=== PATIENT | female | born 1950 | race Caucasian/White ===

== ENCOUNTER → 2017-03-17 | Outpatient (CLI) | payer OTHER | END | disposition home or self-care (01) | LOC: RAD 13:55 | PROVIDERS: ATTEND Nurse Practitioner | DX: K57.32 Diverticulitis of large intestine without perforation or abscess without bleeding (principal) | CPT/HCPCS: 36415; 74177; 82565 ==

== ENCOUNTER → 2017-08-25 | Outpatient (CLI) | payer OTHER | END | disposition home or self-care (01) | LOC: CFH 12:01 | PROVIDERS: ATTEND Internal Medicine | DX: M23.221 Derangement of posterior horn of medial meniscus due to old tear or injury, right knee (principal); M25.461 Effusion, right knee; M94.261 Chondromalacia, right knee ==

== ENCOUNTER → 2017-09-28 | Outpatient (CLI) | payer OTHER ==
[~2017-09-28] MED LIST: OMNIPAQUE 350 MG/ML, 100ML BOTTLE ONE
[2017-09-28 09:17] LABS: CREATININE 0.79 mg/dL (0.55-1.02)
== END | disposition home or self-care (01) ==
LOC: RAD 08:18
PROVIDERS: ATTEND Nurse Practitioner Family
DX: K57.32 Diverticulitis of large intestine without perforation or abscess without bleeding (principal); K76.0 Fatty (change of) liver, not elsewhere classified; M47.899 Other spondylosis, site unspecified
CPT/HCPCS: 36415; 74177; 82565; Q9967

== ENCOUNTER → 2018-01-21 | Outpatient (CLI) | payer OTHER ==
[~2018-01-21] MED LIST changes: -OMNIPAQUE 350 MG/ML, 100ML BOTTLE ONE; +PARO40TA61 PO; +thyroid PO
[2018-01-21 11:09] LABS: BASOPHILS # (AUTO) 0.03 x10^3/uL (0-0.1); BASOPHILS % (AUTO) 1 % (0-1); EOSINOPHILS # (AUTO) 0.02 x10^3/uL (0-0.4); EOSINOPHILS % (AUTO) 0 % (1-7); LYMPHOCYTES # (AUTO) 1.71 x10^3/uL (1-3.4); LYMPHOCYTES % (AUTO) 41 % (22-44); MD NO; MEAN CORPUSCULAR HEMOGLOBIN 33.4 pg (27.0-34.8); MEAN CORPUSCULAR HGB CONC 34.8 g/dL (32.4-35.8); MEAN CORPUSCULAR VOLUME 96.1 fL (80-100); MEAN PLATELET VOLUME 7.6 fL (7.4-10.4); MONOCYTES # (AUTO) 0.39 x10^3/uL (0.2-0.8); MONOCYTES % (AUTO) 9 % (2-9); NEUTROPHILS # (AUTO) 2.05 x10^3/uL (1.8-6.8); NEUTROPHILS % (AUTO) 49 % (42-75); PLATELET COUNT 255 x10^3/uL (130-400); RED BLOOD COUNT 4.77 x10^6/uL (3.82-5.3); RED CELL DISTRIBUTION WIDTH 13.9 % (9.6-15.2)
[2018-01-21 11:19] LABS: ALBUMIN 4.2 g/dL (3.4-5.0); ANION GAP 8 mmol/L (5-15); CALCIUM 8.8 mg/dL (8.5-10.1); CHLORIDE 106 mmol/L (98-107)
[2018-01-21 11:23] LABS: ALANINE AMINOTRANSFERASE 84 U/L (12-78); ALKALINE PHOSPHATASE 79 U/L (45-117); BILIRUBIN,TOTAL 0.5 mg/dL (0.2-1.0); TOTAL PROTEIN 7.9 g/dL (6.4-8.2)
== END | disposition home or self-care (01) ==
LOC: STAR 09:48
PROVIDERS: ATTEND Surgery
DX: Z01.818 Encounter for other preprocedural examination (principal)
CPT/HCPCS: 36415; 71046; 80053; 85025; 93005

== ENCOUNTER → 2018-01-24 | Outpatient (CLI) | payer OTHER ==
[~2018-01-24] MED LIST changes: +CALC500T PO; +DIPH25CA61 PO; +LEVO50TA5 PO
== END | disposition home or self-care (01) ==
LOC: WOUND 14:40
PROVIDERS: ATTEND Family Medicine
DX: Z93.2 Ileostomy status (principal); E03.9 Hypothyroidism, unspecified; G47.30 Sleep apnea, unspecified; F32.9 Major depressive disorder, single episode, unspecified
CPT/HCPCS: 99204

== ENCOUNTER 2018-01-26 06:09 | Inpatient (IN) | payer OTHER ==
[~2018-01-26] VITALS: Ht 165.1 cm; Wt 90.3 kg
[~2018-01-26 06:09] MED LIST changes: -CALC500T PO; -DIPH25CA61 PO; -LEVO50TA5 PO
[2018-01-26] MEDS ORDERED: LACTATED RINGERS 1,000 ML IV SCH (06:46)
[2018-01-26 07:11] VITALS: BP 137/84
[2018-01-26] MEDS ORDERED: INDOCYANINE GREEN 25 MG VIAL ONE (07:11)
[2018-01-26] MEDS ORDERED: BUPIVACAINE/PF 0.5% ONE (07:11)
[2018-01-26] MEDS ORDERED: FENTANYL PF 250 MCG/5ML ONE (07:16)
[2018-01-26] MEDS ORDERED: MIDAZOLAM 1 MG/ML, 2ML ONE (07:16)
[2018-01-26] MEDS ORDERED: LIDOCAINE-MPF 2% ,5ML ONE (07:17)
[2018-01-26] MEDS ORDERED: PROPOFOL 10 MG/ML, 20ML ONE (07:17)
[2018-01-26] MEDS ORDERED: ROCURONIUM 10MG/ML,5ML ONE (07:18)
[2018-01-26] MEDS ORDERED: ACETAMINOPHEN 500 MG TABLET PO ONE (07:30)
[2018-01-26] MEDS ORDERED: GABAPENTIN 300 MG CAPSULE PO ONE (07:30)
[2018-01-26] MEDS ORDERED: SCOPOLAMINE PATCH, 1.5MG PATCH.TD72 TD ONE (07:30)
[2018-01-26] MEDS ORDERED: DEXAMETHASONE 4 MG/ML, 1ML ONE ×2 (07:59)
[2018-01-26] MEDS ORDERED: MEPERIDINE/PF 25MG/0.5ML IVPush PRN (08:30)
[2018-01-26] MEDS ORDERED: LABETALOL 5MG/ML, 20ML IV PRN (08:30)
[2018-01-26] MEDS ORDERED: hydrALAzine 20 MG/ML, 1ML IV PRN (08:30)
[2018-01-26] MEDS ORDERED: OXYcodone 5 MG/5 ML ORAL.SOL UDC PO PRN (08:30)
[2018-01-26] MEDS ORDERED: PROMETHAZINE 25 MG/ML, 1ML IV PRN (08:30)
[2018-01-26] MEDS ORDERED: HYDROmorphone 1 MG/ML, 1ML IV PRN (08:30)
[2018-01-26] MEDS ORDERED: HALOPERIDOL 5 MG/ML IV PRN (08:30)
[2018-01-26] MEDS ORDERED: ONDANSETRON 2MG/ML, 2ML ONE ×2 (09:17)
[2018-01-26] MEDS ORDERED: NEOSTIGMINE 1 MG/ML, 10ML ONE (09:23)
[2018-01-26] MEDS ORDERED: GLYCOPYRROLATE 0.4 MG/2 ML, 2ML ONE ×2 (09:24→09:50)
[2018-01-26] MEDS ORDERED: FENTANYL PF 100 MCG/2ML ONE (09:58)
[2018-01-26] MEDS ORDERED: OXYcodone 5 MG/5 ML ORAL.SOL UDC ONE (09:58)
[2018-01-26] MEDS ORDERED: GLYCOPYRROLATE 0.2MG/1ML, 5ML IVPush ONE ×2 (10:00)
[2018-01-26] MEDS: FENTANYL PF 100 MCG/2ML IV PRN ×2 (10:04→10:15)
[2018-01-26] MEDS ORDERED: MEPERIDINE/PF 50 MG/ML ONE (10:34)
[2018-01-26] MEDS ORDERED: LORazepam 2 MG/ML, 1ML IVPush PRN (11:30)
[2018-01-26] MEDS ORDERED: ACETAMINOPHEN 100 ML IV SCH (11:30)
[2018-01-26] MEDS ORDERED: HALOPERIDOL 5 MG/ML IVPush PRN (11:30)
[2018-01-26] MEDS ORDERED: HYDROmorphone 1 MG/ML, 1ML IVPush PRN (11:30)
[2018-01-26] MEDS ORDERED: OXYcodone IR 5MG TABLET PO PRN (11:30)
[2018-01-26] MEDS ORDERED: TRAZODONE 50MG TABLET PO PRN (11:30)
[2018-01-26] MEDS ORDERED: DIPHENHYDRAMINE 50 MG/ML, 1ML IVPush PRN (11:30)
[2018-01-26] MEDS ORDERED: LORazepam 1MG TABLET PO PRN (11:30)
[2018-01-26] MEDS ORDERED: ONDANSETRON 2MG/ML, 2ML IV PRN (11:30)
[2018-01-26] MEDS ORDERED: DEXAMETHASONE 4 MG/ML, 1ML IVPush PRN (11:30)
[2018-01-26] MEDS ORDERED: ACETAMINOPHEN 100 ML IV PRN (11:30)
[2018-01-26] MEDS ORDERED: SCOPOLAMINE PATCH, 1.5MG PATCH.TD72 TD PRN (11:30)
[2018-01-26] MEDS ORDERED: CALCIUM CARBONATE 500 MG TAB.CHEW PO PRN (11:30)
[2018-01-26] MEDS ORDERED: DIPHENHYDRAMINE 25 MG CAPSULE PO PRN (11:30)
[2018-01-26] MEDS: ACETAMINOPHEN 500 MG TABLET PO SCH ×3 (12:20→23:27)
[2018-01-26] MEDS: D5%-0.45NACL+KCL 20MEQ 1,000 ML IV SCH (13:01)
[2018-01-26 14:00] VITALS: BP 106/69
[2018-01-26 16:03] VITALS: BP 109/69
[2018-01-26] MEDS: IBUPROFEN 800 MG TABLET PO SCH ×2 (16:23→21:03)
[2018-01-26 19:47] VITALS: BP 100/66
[2018-01-27 00:19] VITALS: BP 102/59
[2018-01-27] MEDS: D5%-0.45NACL+KCL 20MEQ 1,000 ML IV SCH ×2 (01:48→14:31)
[2018-01-27 03:49] VITALS: BP 119/77
[2018-01-27] MEDS: ENOXAPARIN 40 MG/0.4 ML SQ SCH (04:58)
[2018-01-27 05:33] LABS: ANION GAP 7 mmol/L (5-15); CALCIUM 8.7 mg/dL (8.5-10.1); CHLORIDE 109 mmol/L (98-107); CREATININE 0.84 mg/dL (0.55-1.02)
[2018-01-27 05:44] LABS: BASOPHILS # (AUTO) 0.03 x10^3/uL (0-0.1); BASOPHILS % (AUTO) 0 % (0-1); EOSINOPHILS % (AUTO) 0 % (1-7); LYMPHOCYTES # (AUTO) 1.25 x10^3/uL (1-3.4); LYMPHOCYTES % (AUTO) 12 % (22-44); MD NO; MEAN CORPUSCULAR HEMOGLOBIN 33.1 pg (27.0-34.8); MEAN CORPUSCULAR VOLUME 97.4 fL (80-100); MEAN PLATELET VOLUME 7.9 fL (7.4-10.4); MONOCYTES # (AUTO) 0.69 x10^3/uL (0.2-0.8); MONOCYTES % (AUTO) 7 % (2-9); NEUTROPHILS # (AUTO) 8.54 x10^3/uL (1.8-6.8); NEUTROPHILS % (AUTO) 81 % (42-75); PLATELET COUNT 227 x10^3/uL (130-400); RED BLOOD COUNT 4.14 x10^6/uL (3.82-5.3)
[2018-01-27] MEDS ORDERED: LEVOTHYROXINE 25 MCG TABLET ONE (05:45)
[2018-01-27] MEDS: ACETAMINOPHEN 500 MG TABLET PO SCH ×3 (06:17→17:08)
[2018-01-27] MEDS: LEVOTHYROXINE 50 MCG TABLET PO SCH (06:17)
[2018-01-27 07:48] VITALS: BP 110/71
[2018-01-27] MEDS: PAROXETINE 20 MG TABLET PO SCH (10:25)
[2018-01-27] MEDS: IBUPROFEN 800 MG TABLET PO SCH ×3 (10:25→21:19)
[2018-01-27 13:59] VITALS: BP 130/72
[2018-01-27 20:51] VITALS: BP 138/75
[2018-01-28] MEDS: ACETAMINOPHEN 500 MG TABLET PO SCH ×2 (00:03→05:52)
[2018-01-28 01:16] VITALS: BP 138/76
[2018-01-28] MEDS ORDERED: LEVOTHYROXINE 25 MCG TABLET ONE (05:14)
[2018-01-28 05:40] LABS: BASOPHILS # (AUTO) 0.02 x10^3/uL (0-0.1); BASOPHILS % (AUTO) 0 % (0-1); EOSINOPHILS # (AUTO) 0.02 x10^3/uL (0-0.4); EOSINOPHILS % (AUTO) 0 % (1-7); LYMPHOCYTES # (AUTO) 2.61 x10^3/uL (1-3.4); LYMPHOCYTES % (AUTO) 42 % (22-44); MD NO; MEAN CORPUSCULAR HEMOGLOBIN 33.1 pg (27.0-34.8); MEAN CORPUSCULAR HGB CONC 33.9 g/dL (32.4-35.8); MEAN CORPUSCULAR VOLUME 97.4 fL (80-100); MEAN PLATELET VOLUME 7.9 fL (7.4-10.4); MONOCYTES # (AUTO) 0.43 x10^3/uL (0.2-0.8); MONOCYTES % (AUTO) 7 % (2-9); NEUTROPHILS # (AUTO) 3.19 x10^3/uL (1.8-6.8); NEUTROPHILS % (AUTO) 51 % (42-75); PLATELET COUNT 220 x10^3/uL (130-400); RED BLOOD COUNT 3.93 x10^6/uL (3.82-5.3)
[2018-01-28 05:43] LABS: ANION GAP 7 mmol/L (5-15); CALCIUM 8.5 mg/dL (8.5-10.1); CHLORIDE 107 mmol/L (98-107)
[2018-01-28 05:46] LABS: CREATININE 0.76 mg/dL (0.55-1.02)
[2018-01-28] MEDS: ENOXAPARIN 40 MG/0.4 ML SQ SCH (05:51)
[2018-01-28] MEDS: LEVOTHYROXINE 50 MCG TABLET PO SCH (05:52)
[2018-01-28] MEDS: D5%-0.45NACL+KCL 20MEQ 1,000 ML IV SCH (05:53)
[2018-01-28 07:50] VITALS: BP 134/81
[2018-01-28] MEDS: IBUPROFEN 800 MG TABLET PO SCH (08:39)
[2018-01-28] MEDS: PAROXETINE 20 MG TABLET PO SCH (08:39)
[2018-01-28] MEDS ORDERED: CALC500T PO (11:10)
[2018-01-28] MEDS ORDERED: DIPH25CA61 PO (11:11)
[2018-01-28] MEDS ORDERED: LEVO50TA5 PO (11:14)
== END 2018-01-28 11:28 | disposition home or self-care (01) | DRG 331 ==
LOC: ORIP 06:09 → 4NOR 10:54 → DCLOUNGE 01-28 11:07
PROVIDERS: ADMIT Surgery; ATTEND Surgery
PROC: 0DBN4ZZ Excision of Sigmoid Colon, Percutaneous Endoscopic Approach (ICD-10-PCS; 2018-01-26)
PROC: 8E0W4CZ Robotic Assisted Procedure of Trunk Region, Percutaneous Endoscopic Approach (ICD-10-PCS; 2018-01-26)
PROC: 3E0T3BZ Introduction of Anesthetic Agent into Peripheral Nerves and Plexi, Percutaneous Approach (ICD-10-PCS; 2018-01-26)
PROC: 0DBP4ZZ Excision of Rectum, Percutaneous Endoscopic Approach (ICD-10-PCS; principal; 2018-01-26 07:30)
DX: K57.32 Diverticulitis of large intestine without perforation or abscess without bleeding (principal); F32.9 Major depressive disorder, single episode, unspecified; E03.9 Hypothyroidism, unspecified; G47.30 Sleep apnea, unspecified; Z90.89 Acquired absence of other organs; Z83.3 Family history of diabetes mellitus; Z80.3 Family history of malignant neoplasm of breast; Z80.8 Family history of malignant neoplasm of other organs or systems
CPT/HCPCS: 36415; 80048; 85025; 86850; 86900; 88307; C1729; G0378; J1100; J1650; J2175; J2250; J2405; J2704; J2710; J3010; J3490; J3480; J7120

== ENCOUNTER → 2018-02-09 | Outpatient (CLI) | payer OTHER ==
[~2018-02-09] MED LIST changes: +CALC500T PO; +DIPH25CA61 PO; +LEVO50TA5 PO; +OMNIPAQUE 350 MG/ML, 100ML BOTTLE ONE
== END | disposition home or self-care (01) ==
LOC: CFH 13:09
PROVIDERS: ATTEND Nurse Practitioner
DX: S30.1XXA Contusion of abdominal wall, initial encounter (principal); X58.XXXA Exposure to other specified factors, initial encounter; Y93.89 Activity, other specified; Y92.89 Other specified places as the place of occurrence of the external cause; Y99.8 Other external cause status
CPT/HCPCS: 74177; Q9967

== ENCOUNTER 2018-02-20 13:26 | Emergency (ER) | payer OTHER ==
[~2018-02-20] VITALS: Ht 165.1 cm; Wt 83.9 kg
[~2018-02-20 13:26] MED LIST changes: -OMNIPAQUE 350 MG/ML, 100ML BOTTLE ONE
[2018-02-20] MEDS ORDERED: OXYcodone/APAP 5/325MG TABLET PO ONE (14:30)
[2018-02-20 14:35] LABS: CULTURE INDICATED? NO; MICROSCOPIC AUTO
[2018-02-20 14:42] LABS: BASOPHILS # (AUTO) 0.04 x10^3/uL (0-0.1); BASOPHILS % (AUTO) 1 % (0-1); EOSINOPHILS # (AUTO) 0.04 x10^3/uL (0-0.4); EOSINOPHILS % (AUTO) 1 % (1-7); LYMPHOCYTES # (AUTO) 1.39 x10^3/uL (1-3.4); LYMPHOCYTES % (AUTO) 21 % (22-44); MD NO; MEAN CORPUSCULAR HEMOGLOBIN 32.4 pg (27.0-34.8); MEAN CORPUSCULAR HGB CONC 33.7 g/dL (32.4-35.8); MEAN PLATELET VOLUME 7.6 fL (7.4-10.4); MONOCYTES # (AUTO) 1.03 x10^3/uL (0.2-0.8); MONOCYTES % (AUTO) 15 % (2-9); NEUTROPHILS # (AUTO) 4.24 x10^3/uL (1.8-6.8); NEUTROPHILS % (AUTO) 63 % (42-75); PLATELET COUNT 287 x10^3/uL (130-400); RED BLOOD COUNT 4.44 x10^6/uL (3.82-5.3); RED CELL DISTRIBUTION WIDTH 14.1 % (9.6-15.2)
[2018-02-20 14:54] LABS: CLOSTRIDIUM DIFFICILE ANTIGEN POSITIVE; CLOSTRIDIUM DIFFICILE TOXIN POSITIVE (Negative)
[2018-02-20 14:55] LABS: ALBUMIN 3.4 g/dL (3.4-5.0); ANION GAP 12 mmol/L (5-15); CALCIUM 8.6 mg/dL (8.5-10.1); CHLORIDE 109 mmol/L (98-107)
[2018-02-20 14:58] LABS: ALANINE AMINOTRANSFERASE 78 U/L (12-78); ALKALINE PHOSPHATASE 156 U/L (45-117); BILIRUBIN,TOTAL 0.5 mg/dL (0.2-1.0); CREATININE 0.77 mg/dL (0.55-1.02); TOTAL PROTEIN 6.8 g/dL (6.4-8.2)
[2018-02-20] MEDS ORDERED: metroNIDAZOLE 500 MG TABLET ONE (15:24)
[2018-02-20] MEDS ORDERED: OXYcodone/APAP 5/325MG TABLET ONE (15:25)
[2018-02-20] MEDS ORDERED: metroNIDAZOLE 500 MG TABLET PO ONE (15:30)
[2018-02-20 16:46] VITALS: BP 134/73
== END 2018-02-20 17:13 | disposition home or self-care (01) ==
LOC: ED 15:17
DX: A04.72 Enterocolitis due to Clostridium difficile, not specified as recurrent (principal); R19.7 Diarrhea, unspecified
CPT/HCPCS: 36415; 76700; 80053; 81001; 83690; 85025; 87324; 89055; 99284

== ENCOUNTER 2018-09-02 08:30 | Outpatient (CLI) | payer MEDICARE | END 2018-09-02 23:59 | disposition home or self-care (01) | LOC: CFH 08:30 | PROVIDERS: ATTEND Internal Medicine | DX: M25.461 Effusion, right knee (principal); M25.551 Pain in right hip ==

== ENCOUNTER → 2019-05-01 | Outpatient (CLI) | payer MEDICARE ==
[~2019-05-01] MED LIST changes: -CALC500T PO; +CALC500T29 PO
[2019-05-01 16:37] LABS: BASOPHILS # (AUTO) 0.04 x10^3/uL (0-0.1); BASOPHILS % (AUTO) 1 % (0-1); EOSINOPHILS # (AUTO) 0.02 x10^3/uL (0-0.4); EOSINOPHILS % (AUTO) 1 % (1-7); LYMPHOCYTES # (AUTO) 2.28 x10^3/uL (1-3.4); LYMPHOCYTES % (AUTO) 47 % (22-44); MD NO; MEAN CORPUSCULAR HEMOGLOBIN 32.1 pg (27.0-34.8); MEAN CORPUSCULAR HGB CONC 33.7 g/dL (32.4-35.8); MEAN CORPUSCULAR VOLUME 95.3 fL (80-100); MEAN PLATELET VOLUME 8.4 fL (7.4-10.4); MONOCYTES # (AUTO) 0.42 x10^3/uL (0.2-0.8); MONOCYTES % (AUTO) 9 % (2-9); NEUTROPHILS # (AUTO) 2.09 x10^3/uL (1.8-6.8); NEUTROPHILS % (AUTO) 43 % (42-75); PLATELET COUNT 225 x10^3/uL (130-400); RED BLOOD COUNT 4.94 x10^6/uL (3.82-5.3); RED CELL DISTRIBUTION WIDTH 13.4 % (9.6-15.2)
[2019-05-01 16:43] LABS: ALANINE AMINOTRANSFERASE 28 U/L (12-78); ALBUMIN 4.1 g/dL (3.4-5.0); ANION GAP 4 mmol/L (5-15); CHLORIDE 113 mmol/L (98-107); CREATININE 0.87 mg/dL (0.55-1.02); GAMMA GLUTAMYL TRANSPEPTIDASE 21 U/L (5-55)
[2019-05-01 16:53] LABS: ALKALINE PHOSPHATASE 98 U/L (45-117); BILIRUBIN,TOTAL 0.4 mg/dL (0.2-1.0); FREE T4 (FREE THYROXINE) 1.04 ng/dL (0.76-1.46); TOTAL PROTEIN 7.6 g/dL (6.4-8.2)
== END | disposition home or self-care (01) ==
LOC: LAB 16:06
PROVIDERS: ATTEND Nurse Practitioner
DX: R10.9 Unspecified abdominal pain (principal); E03.9 Hypothyroidism, unspecified; I10 Essential (primary) hypertension; R11.0 Nausea; Z79.899 Other long term (current) drug therapy
CPT/HCPCS: 36415; 80053; 82977; 84439; 84443; 85025

== ENCOUNTER 2019-06-05 15:36 | Outpatient (CLI) | payer MEDICARE | END 2019-06-05 23:59 | disposition home or self-care (01) | LOC: RAD 15:36 | PROVIDERS: ATTEND Nurse Practitioner | DX: R10.84 Generalized abdominal pain (principal); M41.85 Other forms of scoliosis, thoracolumbar region | CPT/HCPCS: 74022 ==